=== PATIENT | male | born 1965 | race American Indian/Alaskan Native ===

== ENCOUNTER 2020-03-03 07:20 | Inpatient (IN) | payer OTHER, MEDICARE ==
[2020-03-03 09:14] LABS: Hematocrit 47.1 % (35.5-45.6); Hemoglobin 16.5 gm/dl (11.8-15.2); Mean Corpuscular HGB Conc 35 % (32-34); Mean Corpuscular Volume 100 fl (84-94); Platelet Count 215 K/mm3 (140-440); Red Blood Count 4.72 M/mm3 (3.65-5.03)
[2020-03-03 09:36] LABS: Alanine Aminotransferase 16 units/L (7-56); Albumin 3.2 g/dL (3.9-5); BUN/Creatinine Ratio 11; Blood Urea Nitrogen 10 mg/dL (9-20); Calcium 9.2 mg/dL (8.4-10.2); Hemolysis Index 55
[2020-03-03] MEDS ORDERED: SODIUM CHLORIDE 0.9% 1000 ML 1,000 ML IV ONE (10:48)
[2020-03-03] MEDS ORDERED: ONDANSETRON 4 MG/2 ML INJ IV ONE (10:49)
[2020-03-03] MEDS ORDERED: PANTOPRAZOLE 40 MG INJ IV ONE (10:49)
[2020-03-03] MEDS ORDERED: POTASSIUM CHLORIDE ER 20 MEQ TAB PO ONE (11:03)
[2020-03-03] MEDS ORDERED: MAGNESIUM SULFATE 2 GM/50 ML BAG IV ONE (11:10)
[2020-03-03] MEDS: POTASSIUM CHLORIDE 10 MEQ 10 MEQ/100 ML BAG IV SCH ×4 (11:11→19:54)
--- NOTE | 2020-03-03 11:16 | Emergency Department Report ---
ED General Adult HPI - General Chief complaint: Abdominal Pain Stated complaint: STOMACH PAIN/CANT URINATE Time Seen by Provider: 03/03/20 10:46 Source: patient Mode of arrival: Ambulatory Limitations: No Limitations - History of Present Illness Initial comments: This is a 54-year-old man with a history of "beer Potomania". He was admitted in 2018 with multiple electrolyte disturbance. He has a history of cachexia. He states that he has not been able to urinate for 3 to 4 days. The patient is very reticent to answer questions. While his triage note states that he is having abdominal pain, he just tells me that he "cannot pee". Indeed on exam he has obvious cystomegaly. He states that he had a normal bowel movement last night. He is not complaining of anxiety shaking or hallucinosis. He does have a history of alcohol abuse obviously. He is remarkably awake for a sodium of 116. Labs are available at the time of my encounter. Again, the patient appears largely unwilling to discuss his medical history. Obviously, he is in need of a Blair catheter. He states that he has had a catheter before. When asked if he has a history of prostate cancer, he states I have a specialist that is checking into that". -: Gradual, days(s) Location: abdomen (Suprapubic) Radiation: non-radiation Quality: aching Consistency: intermittent Improves with: none Worsens with: other (Inability to urinate) Associated Symptoms: denies other symptoms, weakness Treatments Prior to Arrival: none - Related Data Previous Rx's Medication Instructions Recorded Last Taken Type Albuterol Sulfate [Ventolin HFA] 2 puff IH Q4H PRN #1 hfa.aer.ad 11/21/17 Unknown Rx Folic Acid [Folvite] 1 mg PO DAILY #30 tablet 11/21/17 Unknown Rx Multivitamin Tab W-MINERAL 1 each PO QDAY #30 tablet 11/21/17 Unknown Rx [Multiple Vitamin/Mineral (Theragran M)] Nicotine [Habitrol] 14 mg TD DAILY #30 patch 11/21/17 Unknown Rx Potassium Chloride [K-Dur] 20 meq PO BID #60 tablet 11/21/17 Unknown Rx Thiamine [Vitamin B-1] 100 mg PO QDAY #30 tablet 11/21/17 Unknown Rx amLODIPine 5 mg PO DAILY #30 tablet 11/21/17 Unknown Rx Allergies Allergy/AdvReac Type Severity Reaction Status Date / Time lisinopril Allergy Swelling Verified 06/11/13 23:39 ED Review of Systems ROS: Stated complaint: STOMACH PAIN/CANT URINATE Other details as noted in HPI Constitutional: denies: chills, fever Eyes: denies: eye pain, vision change ENT: denies: ear pain, throat pain Respiratory: denies: cough, shortness of breath Cardiovascular: denies: chest pain, palpitations Endocrine: no symptoms reported Gastrointestinal: as per HPI. denies: nausea, diarrhea Genitourinary: as per HPI Musculoskeletal: denies: back pain, arthralgia Skin: denies: rash, lesions Neurological: denies: headache, weakness, paresthesias Psychiatric: denies: anxiety, depression Hematological/Lymphatic: denies: easy bleeding, easy bruising ED Past Medical Hx - Past Medical History Previous Medical History?: Yes Hx Hypertension: Yes Hx Congestive Heart Failure: No Hx Diabetes: No Hx Asthma: Yes Hx COPD: No Hx HIV: No Additional medical history: etoh abuse, etoh withdraw, Prostate problems - Surgical History Past Surgical History?: Yes Additional Surgical History: r) foot surgery - Social History Smoking Status: Current Every Day Smoker Substance Use Type: Alcohol - Medications Home Medications: Home Medications Medication Instructions Recorded Confirmed Last Taken Type Albuterol Sulfate [Ventolin HFA] 2 puff IH Q4H PRN #1 hfa.aer.ad 11/21/17 Unknown Rx Folic Acid [Folvite] 1 mg PO DAILY #30 tablet 11/21/17 Unknown Rx Multivitamin Tab W-MINERAL 1 each PO QDAY #30 tablet 11/21/17 Unknown Rx [Multiple Vitamin/Mineral (Theragran M)] Nicotine [Habitrol] 14 mg TD DAILY #30 patch 11/21/17 Unknown Rx Potassium Chloride [K-Dur] 20 meq PO BID #60 tablet 11/21/17 Unknown Rx Thiamine [Vitamin B-1] 100 mg PO QDAY #30 tablet 11/21/17 Unknown Rx amLODIPine 5 mg PO DAILY #30 tablet 11/21/17 Unknown Rx ED Physical Exam - General Limitations: Physical Limitation General appearance: alert, in no apparent distress, cachectic - Head Head exam: Present: atraumatic, normocephalic - Eye Eye exam: Present: normal appearance. Absent: scleral icterus - ENT ENT exam: Present: mucous membranes dry - Neck Neck exam: Present: normal inspection. Absent: tenderness, meningismus - Respiratory Respiratory exam: Present: normal lung sounds bilaterally. Absent: respiratory distress - Cardiovascular Cardiovascular Exam: Present: regular rate, normal rhythm. Absent: systolic murmur, diastolic murmur, rubs, gallop - GI/Abdominal GI/Abdominal exam: Present: soft, distended (Distended bladder), normal bowel sounds, organomegaly (Cystomegaly). Absent: tenderness, guarding, rebound, rigid - Rectal Rectal exam: Present: deferred - Extremities Exam Extremities exam: Present: normal inspection - Back Exam Back exam: Present: normal inspection - Neurological Exam Neurological exam: Present: alert, oriented X3, CN II-XII intact. Absent: motor sensory deficit - Psychiatric Psychiatric exam: Present: normal affect, normal mood - Skin Skin exam: Present: warm, dry, intact, normal color. Absent: rash ED Course Vital Signs 03/03/20 08:26 Temperature 97.4 F L Pulse Rate 114 H Respiratory 18 Rate Blood Pressure 151/84 O2 Sat by Pulse 100 Oximetry - Reevaluation(s) Reevaluation #1: Initial resuscitation consisted of a liter of normal saline bolus. I have ordered p.o. potassium as well as a K rider of 40. I have also ordered 2 g of magnesium empirically. I think we can be reasonably certain that this patient will be hypomagnesemic as well. Thus the patient requires admission for severe hyponatremia. This is remarkably without altered mental status. He has multiple other electrolyte abnormalities. I think the possibility of recurrent beer Potomania is reasonably likely. He is not currently withdrawing from alcohol. He may require a CIWA protocol at some point. However, I certainly would not give benzodiazepines as he does not currently require them and considering his current sodium at this point. 03/03/20 11:19 03/03/20 11:21 Patient will be admitted to the hospitalist service for further care and evaluation. ED Medical Decision Making - Lab Data Result diagrams: 03/03/20 08:32 03/03/20 08:32 Laboratory Results - last 72 hr 03/03/20 03/03/20 08:32 08:32 WBC 12.6 H RBC 4.72 Hgb 16.5 H Hct 47.1 H MCV 100 H MCH 35 H MCHC 35 H RDW 14.0 Plt Count 215 Seg Neutrophils % Director Of Music Sodium 116 L* Potassium 2.9 L* Chloride 69.3 L Carbon Dioxide 29 Anion Gap 21 BUN 10 Creatinine 0.9 Estimated GFR > 60 BUN/Creatinine Ratio 11 Glucose 130 H Calcium 9.2 Total Bilirubin 0.70 AST 35 ALT 16 Alkaline Phosphatase 161 H Total Protein 7.8 Albumin 3.2 L Albumin/Globulin Ratio 0.7 Critical care attestation.: If time is entered above; I have spent that time in minutes in the direct care of this critically ill patient, excluding procedure time. ED Disposition Clinical Impression: Hyponatremia, Hypokalemia, Bladder outlet obstruction Disposition: OP ADMIT IP TO THIS HOSP Is pt being admited?: Yes Does the pt Need Aspirin: No Condition: Stable Time of Disposition: 11:22
[2020-03-03 11:18] LABS: Band Neutrophils # (Manual) 0.1 K/mm3; Basophils % (Manual) 0 % (0.0-1.8); Eosinophils % (Manual) 0 % (0.0-4.3); Total Cells Counted 100
[2020-03-03 11:20] LABS: Target Cells Few
[2020-03-03 11:21] LABS: Platelet Estimate Consistent w Auto
[2020-03-03 12:08] LABS: INR 0.93 (0.87-1.13)
[2020-03-03 12:09] LABS: Partial Thromboplastin Time 29.4 Sec. (24.2-36.6)
[2020-03-03 12:22] LABS: Creatine Kinase MB 1.8 ng/mL (0.0-4.0)
--- NOTE | 2020-03-03 12:30 | XRay Report ---
CHEST 1 VIEW 03/03/2020 11:00 AM INDICATION / CLINICAL INFORMATION: hypertension. COMPARISON: Chest one view from 11/17/2017. FINDINGS: SUPPORT DEVICES: None. HEART / MEDIASTINUM: No significant abnormality. LUNGS / PLEURA: No significant pulmonary or pleural abnormality. No pneumothorax. ADDITIONAL FINDINGS: No significant additional findings. IMPRESSION: 1. No acute abnormality of the chest. Signer Name: Ad Page MD Signed: 03/03/2020 12:25 PM Workstation Name: [id number]
[2020-03-03] MEDS ORDERED: POTASSIUM CHLORIDE 10 MEQ 10 MEQ/100 ML BAG IV ONE (12:34)
--- NOTE | 2020-03-03 12:36 | History and Physical Report ---
History of Present Illness Date of examination: 03/03/20 Date of admission: 03/03/20 11:32 Chief complaint: Unable to urinate History of present illness: This is a 54-year-old male with a history of alcohol abuse, asthma presented to the hospital with complaints of unable to urinate for 3 to 4 days. Patient states that he had similar episodes in the past and that was resolved after placing a Blair. Currently he does have urology appointment outpatient on last week of March for possible cystoscopy. Patient does endorse heavy alcohol use his last alcohol intake was just before coming to the hospital. Patient noted to have distended abdomen in the ER and a Blair catheter was placed by ER physician which drained about 1 L of urine immediately. Patient feels much relieved now after placing a Blair. His serum chemistry also noted potassium of 2.9 and sodium of 112. His potassium was repleted in the ER, given 1 L of normal saline bolus and admission was called for severe hyponatremia and urinary retention. - Past Medical History Hx Hypertension: Yes Hx Congestive Heart Failure: No Hx Diabetes: No Hx Asthma: Yes Hx COPD: No Hx HIV: No Additional medical history: etoh abuse, etoh withdraw -Family history: denies any chronic medical disease - Surgical History Additional Surgical History: r) foot surgery - Social History Smoking Status: Current Every Day Smoker Substance Use Type: Alcohol Review of System: Constitutional: no fever, no chills, no weight loss Ears, eyes, nose, mouth and throat: no nasal congestion, no nasal discharge, no sinus pressure, no vision change, no red eye. Neck: No neck pain or rigidity. Cardiovascular: No chest pain, no orthopnea, no palpitations, no leg swelling Respiratory: No shortness of breath, no cough, no congestion, no wheezing Gastrointestinal: no abdominal pain, no nausea, no vomiting Genitourinary : no dysuria, no hematuria Musculoskeletal: no joint swelling or muscle ache Integumentary: no rash, no pruritis Neurological: no parathesias, no numbness, no tingling Endocrine: no cold or heat intolerance, no polyuria or polydipsia Hematologic/Lymphatic: no easy bruising, no easy bleeding, no gland swelling Allergic/Immunologic: no urticaria, no angioedema. Medications and Allergies Allergies Allergy/AdvReac Type Severity Reaction Status Date / Time lisinopril Allergy Swelling Verified 06/11/13 23:39 Home Medications Medication Instructions Recorded Confirmed Last Taken Type Albuterol Sulfate [Ventolin HFA] 2 puff IH Q4H PRN #1 hfa.aer.ad 11/21/17 03/03/20 Unknown Rx Folic Acid [Folvite] 1 mg PO DAILY #30 tablet 11/21/17 03/03/20 Unknown Rx Multivitamin Tab W-MINERAL 1 each PO QDAY #30 tablet 11/21/17 03/03/20 Unknown Rx [Multiple Vitamin/Mineral (Theragran M)] Nicotine [Habitrol] 14 mg TD DAILY #30 patch 11/21/17 03/03/20 Unknown Rx Potassium Chloride [K-Dur] 20 meq PO BID #60 tablet 11/21/17 03/03/20 Unknown Rx Thiamine [Vitamin B-1] 100 mg PO QDAY #30 tablet 11/21/17 03/03/20 Unknown Rx amLODIPine 5 mg PO DAILY #30 tablet 11/21/17 03/03/20 Unknown Rx Ibuprofen [Motrin] 800 mg PO Q8HR PRN 03/03/20 03/03/20 Unknown History Tamsulosin [Flomax] 0.4 mg PO QDAY 03/03/20 03/03/20 Unknown History Active Meds: Active Medications Albuterol (Proair) 2 puff IH Q4HRT PRN PRN Reason: Shortness Of Breath Amlodipine Besylate (Amlodipine) 5 mg PO DAILY NOEMI Folic Acid (Folvite) 1 mg PO DAILY NOEMI Potassium Chloride (Kcl 10meq/100ml) 10 meq in 100 mls @ 100 mls/hr IV Q1H NOEMI Stop: 03/03/20 14:59 Last Admin: 03/03/20 12:28 Dose: 100 mls/hr Documented by: Sodium Chloride (Nacl 0.9% 1000 Ml) 1,000 mls @ 100 mls/hr IV DIRECT NOEMI Multivitamins/Minerals (Theragran-M Tab) 1 each PO QDAY NOEMI Nicotine (Habitrol) 14 mg TD DAILY NOEMI Potassium Chloride (K-Dur) 20 meq PO BID NOEMI Tamsulosin HCl (Flomax) 0.4 mg PO QDAY NOEMI Thiamine HCl (Vitamin B-1) 100 mg PO QDAY NOEMI Exam - Physical Exam Narrative exam: GENERAL: well-developed and malnourished -[place] male lying on bed appeared to be in no discomfort. HEENT: Normocephalic. Atraumatic. No conjunctival congestion or icterus. Patient has moist mucous membranes. NECK: Supple. Trachea midline. CHEST/LUNGS: Clear to auscultated bilaterally, breathing nonlabored. No wheezes crackles or rhonchi. HEART/CARDIOVASCULAR: Regular in rate and rhythm. S1 and S2 positive. ABDOMEN: Abdomen is soft, nontender. Patient has normal bowel sounds. SKIN: There is no rash. Warm and dry. NEURO: No focal motor deficit. Follows command. MUSCULOSKELETAL: No joint effusion or tenderness. EXTRIMITY: No edema, no cyanosis or clubbing. PSYCH: Cooperative. - Constitutional Vitals: Temp Pulse Resp BP Pulse Ox 97.4 F L 114 H 18 151/84 100 03/03/20 08:26 03/03/20 08:26 03/03/20 08:26 03/03/20 08:26 03/03/20 08:26 Results - Labs CBC & Chem 7: 03/04/20 07:41 03/04/20 07:41 Labs: Abnormal lab results 03/03/20 03/03/20 03/03/20 Range/Units 08:32 08:32 11:04 WBC 12.6 H (4.5-11.0) K/mm3 Hgb 16.5 H (11.8-15.2) gm/dl Hct 47.1 H (35.5-45.6) % MCV 100 H (84-94) fl MCH 35 H (28-32) pg MCHC 35 H (32-34) % Seg Neuts % (Manual) 95.0 H (40.0-70.0) % Lymphocytes % (Manual) 2.0 L (13.4-35.0) % Seg Neutrophils # Man 12.0 H (1.8-7.7) K/mm3 Lymphocytes # (Manual) 0.3 L (1.2-5.4) K/mm3 Sodium 116 L* (137-145) mmol/L Potassium 2.9 L* (3.6-5.0) mmol/L Chloride 69.3 L (98-107) mmol/L Glucose 130 H (75-100) mg/dL Magnesium 2.60 H (1.7-2.3) mg/dL Alkaline Phosphatase 161 H (35-129) units/L Albumin 3.2 L (3.9-5) g/dL Assessment and Plan --Urinary retention likely due to bladder outlet obstruction -We will obtain CT abdomen pelvis -Blair catheter placed in the ER which drained over 1000 mL of urine -Continue to monitor ins and O's -Urology consult following CT abdomen pelvis result --Hyponatremia; likely beer proteinemia continue saline, monitor BMP --Hypokalemia; continue repletion --UTI, mild we will place on IV antibiotic, will get urine culture --ETOH withdrawal/metabolic encephalopathy; continue librium and ciwa protocol --Severe malnutrition; counseled about eating real food, patient mostly drinks beer and does not actually consume any food. Dietary consult --polysubstance abuse; counseled, but patient declined to change his behavior --DVT prophylaxis, placed on Lovenox
--- NOTE | 2020-03-03 12:36 | Progress Note ---
Assessment and Plan Hyponatremia, Hypokalemia, Bladder outlet obstruction Subjective Date of service: 03/03/20 Objective - Constitutional Vitals: Vital Signs - 12hr 03/03/20 08:26 Temperature 97.4 F L Pulse Rate 114 H Respiratory 18 Rate Blood Pressure 151/84 O2 Sat by Pulse 100 Oximetry - Labs CBC & Chem 7: 03/03/20 08:32 03/03/20 08:32 Labs: Abnormal lab results 03/03/20 03/03/20 03/03/20 Range/Units 08:32 08:32 11:04 WBC 12.6 H (4.5-11.0) K/mm3 Hgb 16.5 H (11.8-15.2) gm/dl Hct 47.1 H (35.5-45.6) % MCV 100 H (84-94) fl MCH 35 H (28-32) pg MCHC 35 H (32-34) % Seg Neuts % (Manual) 95.0 H (40.0-70.0) % Lymphocytes % (Manual) 2.0 L (13.4-35.0) % Seg Neutrophils # Man 12.0 H (1.8-7.7) K/mm3 Lymphocytes # (Manual) 0.3 L (1.2-5.4) K/mm3 Sodium 116 L* (137-145) mmol/L Potassium 2.9 L* (3.6-5.0) mmol/L Chloride 69.3 L (98-107) mmol/L Glucose 130 H (75-100) mg/dL Magnesium 2.60 H (1.7-2.3) mg/dL Alkaline Phosphatase 161 H (35-129) units/L Albumin 3.2 L (3.9-5) g/dL
[2020-03-03] MEDS ORDERED: chlordiazePOXIDE 25 MG CAP PO PRN (12:38)
[2020-03-03] MEDS ORDERED: LORazepam 2 MG/ML VIAL IV PRN (12:38)
[2020-03-03 13:14] LABS: Bacteria,Urine 4+ /HPF (Negative); Bilirubin,Urine NEG (Negative); Blood,Urine MOD (Negative); Color,Urine Yellow (Yellow); Hyaline Casts,Urine 3 /LPF; Mucus,Urine FEW /HPF; Urobilinogen,Urine < 2.0 mg/dL (<2.0)
[2020-03-03 13:16] LABS: Protein,Urine >500 mg/dL (Negative)
--- NOTE | 2020-03-03 15:23 | Cat Scan Report ---
CT ABDOMEN AND PELVIS WITHOUT CONTRAST INDICATION: Flank pain and urinary retention. TECHNIQUE: Axial CT images were obtained through the abdomen and pelvis without IV contrast. All CT scans at [facility] location are performed using CT dose reduction for ALARA by means of automated exposure control. COMPARISON: None available. FINDINGS: LOWER CHEST: Mild linear bibasilar atelectasis/scarring. LIVER: No significant abnormality. GALLBLADDER: No significant abnormality. BILE DUCTS: No significant abnormality. PANCREAS: No significant abnormality. SPLEEN: No significant abnormality. ADRENALS: No significant abnormality. RIGHT KIDNEY and URETER: Moderate right hydroureteronephrosis nephrosis without visualized urinary tr act calculi. LEFT KIDNEY and URETER: No significant abnormality. STOMACH and SMALL BOWEL: No significant abnormality. COLON: Moderate sigmoid diverticulosis without CT evidence for diverticulitis. APPENDIX: No significant abnormality. PERITONEUM: No free fluid. No free air. No fluid collection. LYMPH NODES: No significant adenopathy. AORTA and ARTERIES: 7 cm heterogeneous lesion left upper quadrant near splenic hilum likely represent s an acute splenic artery aneurysm/pseudoaneurysm and does not contain any calcifications. Extensive vascular calcifications within nonaneurysmal abdominal aorta IVC and VEINS: No significant abnormality. URINARY BLADDER: Marked diffuse bladder wall thickening. Bladder partially collapsed and contains Fol ey catheter. REPRODUCTIVE ORGANS: Enlarged prostate measuring 4.9 cm ADDITIONAL FINDINGS: None. SKELETAL SYSTEM: Chronic right L5 spondylolysis IMPRESSION: 1. 7 cm indeterminate heterogeneous lesion within left upper quadrant near splenic hilum. Favor acute splenic artery aneurysm/pseudoaneurysm. Recommend CTA abdomen with contrast for further evaluation 2. Moderate right and mild left hydroureteronephrosis secondary to marked 3. No urinary tract calculi. Diffuse bladder wall thickening 4. 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 Signer Name: Cameron Daugherty MD Signed: 03/03/2020 3:19 PM Workstation Name: [id number]
[2020-03-03] MEDS ORDERED: ALBUTEROL 8.5 GM MDI INHALATION IH PRN (16:00)
--- NOTE | 2020-03-03 17:26 | Cat Scan Report ---
CT ABDOMEN WITH CONTRAST INDICATION / CLINICAL INFORMATION: MAIN. TECHNIQUE: Axial CT images were obtained through the abdomen after IV contrast. All CT scans at this location ar e performed using CT dose reduction for ALARA by means of automated exposure control. COMPARISON: None available. FINDINGS: LOWER CHEST: No significant abnormality. LIVER: No significant abnormality. GALLBLADDER: No significant abnormality. BILE DUCTS: No significant abnormality. 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 SPLEEN: No significant abnormality. ADRENALS: No significant abnormality. RIGHT KIDNEY and URETER: Moderate right hydroureteronephrosis LEFT KIDNEY and URETER: Mild left hydroureteronephrosis STOMACH and SMALL BOWEL: No significant abnormality. COLON: No significant abnormality. APPENDIX: No significant abnormality. PERITONEUM: No free fluid. No free air. No fluid collection. LYMPH NODES: No significant adenopathy. AORTA and ARTERIES: No significant abnormality. IVC and VEINS: No significant abnormality. ADDITIONAL FINDINGS: Enlarged enhancing pancreas with invasion of posterior bladder wall seen best on axial image 155 with marked diffuse bladder wall thickening which is the etiology of the bilateral h ydronephrosis fully catheter is seen within the collapsed urinary bladder SKELETAL SYSTEM: Blastic 1.6 cm skeletal metastasis is seen within the anterior aspect of the L2 vert ebral body seen best on sagittal image 70 IMPRESSION: 1. 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 This would be amenable to endoscopic ultrasound-guided biopsy 2. Moderate bilateral hydroureter ureter hydronephrosis secondary to prostate cancer with bladder inv asion 4. Blastic L2 skeletal metastasis Signer Name: Cameron Daugherty MD Signed: 03/03/2020 5:22 PM Workstation Name: [id number]
[2020-03-03] MEDS ORDERED: hydrALAZINE 20 MG/1 ML INJ IV PRN (18:06)
[2020-03-03] MEDS: SODIUM CHLORIDE 0.9% 1000 ML 1,000 ML IV SCH (18:38)
[2020-03-03] MEDS: IBUPROFEN 600 MG TAB PO PRN (18:45)
[2020-03-03] MEDS: POTASSIUM CHLORIDE ER 20 MEQ TAB PO SCH (21:46)
[2020-03-04] MEDS: SODIUM CHLORIDE 0.9% 1000 ML 1,000 ML IV SCH ×2 (05:28→15:45)
[2020-03-04 08:11] LABS: Basophils % (Auto) 0.1 % (0.0-1.8); Eosinophils % (Auto) 0.1 % (0.0-4.3); Hematocrit 42.7 % (35.5-45.6); Hemoglobin 14.8 gm/dl (11.8-15.2); Lymphocytes # (Auto) 0.5 K/mm3 (1.2-5.4); Lymphocytes % (Auto) 3.9 % (13.4-35.0); Mean Corpuscular HGB Conc 35 % (32-34); Mean Corpuscular Volume 100 fl (84-94); Monocytes # (Auto) 0.8 K/mm3 (0.0-0.8); Monocytes % (Auto) 6.2 % (0.0-7.3); Platelet Count 167 K/mm3 (140-440); Red Blood Count 4.29 M/mm3 (3.65-5.03); Red Cell Distribution Width 13.8 % (13.2-15.2)
[2020-03-04 08:27] LABS: BUN/Creatinine Ratio 11; Blood Urea Nitrogen 9 mg/dL (9-20); Calcium 8.3 mg/dL (8.4-10.2); Hemolysis Index 12
[2020-03-04] MEDS ORDERED: amLODIPine 5 MG TAB PO SCH ×2 (10:00→11:43)
[2020-03-04] MEDS: TAMSULOSIN 0.4 MG CAP PO SCH (10:58)
[2020-03-04] MEDS: FOLIC ACID 1 MG TAB PO SCH (10:58)
[2020-03-04] MEDS: NICOTINE 14 MG/24 HR PATCH TD SCH (10:58)
[2020-03-04] MEDS: THIAMINE 100 MG TAB PO SCH (10:58)
[2020-03-04] MEDS: IBUPROFEN 600 MG TAB PO PRN (10:58)
[2020-03-04] MEDS: POTASSIUM CHLORIDE ER 20 MEQ TAB PO SCH ×2 (10:58→21:58)
[2020-03-04] MEDS: MULTIVITAMINS,THER W-MINERALS TAB PO SCH (10:58)
[2020-03-04] MEDS ORDERED: ACETAMINOPHEN 325 MG TAB PO PRN (11:44)
[2020-03-04] MEDS ORDERED: cefTRIAXone/NS 1 GM/50 ML 1 GM/50 ML BAG IV SCH (13:00)
[2020-03-04] MEDS: METOPROLOL TARTRATE 50 MG TAB PO SCH ×2 (13:16→21:56)
--- NOTE | 2020-03-04 15:31 | Progress Note ---
Assessment and Plan --Urinary retention likely due to bladder outlet obstruction -CT abdomen pelvis showed possibly stage IV prostate cancer with bony and blad alton metastasis -Blair catheter placed in the ER which drained over 1000 mL of urine -Continue to monitor ins and O's -We will order for urology consult --pancreatic tail tumor, will consult GI for further recommendation. monitor LFTs --Hyponatremia; continue saline, monitor BMP --Hypokalemia; continue repletion --ETOH withdrawal/metabolic encephalopathy; continue librium and ciwa protocol --UTI, mild we will place on IV antibiotic, will get urine culture --Severe malnutrition; counseled about eating real food, patient mostly drinks beer and does not actually consume any food. Dietary consult --polysubstance abuse; counseled, --Hypertension, continue to monitor BP and adjust medications to keep SBP less than 160 --DVT prophylaxis, placed on Lovenox 03/04: Potassium level normal, sodium [address] abdomen pelvis results. Will consult urology for further evaluation and management for possible stage IV prostate cancer. will also consult GI for pancreatic tail tumor Subjective Date of service: 03/04/20 Interval history: Patient seen and examined. Medical records and medication list reviewed. No acute event overnight noted by the RN. Patient denies any chest pain or difficulty breathing. Patient refusing regular diet, he requested to keep him on clear liquid diet Updated him with the CT scan results Discussed plan of care at bedside with patient. Objective - Exam Narrative Exam: GENERAL: well-developed and malnourished -[place] male lying on bed appeared to be in no discomfort. HEENT: Normocephalic. Atraumatic. No conjunctival congestion or icterus. Patient has moist mucous membranes. NECK: Supple. Trachea midline. CHEST/LUNGS: Clear to auscultated bilaterally, breathing nonlabored. No wheezes crackles or rhonchi. HEART/CARDIOVASCULAR: Regular in rate and rhythm. S1 and S2 positive. ABDOMEN: Abdomen is soft, nontender. Patient has normal bowel sounds. SKIN: There is no rash. Warm and dry. NEURO: No focal motor deficit. Follows command. MUSCULOSKELETAL: No joint effusion or tenderness. EXTRIMITY: No edema, no cyanosis or clubbing. PSYCH: Cooperative. - Constitutional Vitals: Vital Signs - 12hr 03/04/20 03/04/20 03/04/20 05:05 05:51 07:02 Temperature 98.5 F 99.2 F Pulse Rate 120 H 110 H Pulse Rate [ From Monitor] Respiratory 18 18 Rate Blood Pressure 168/86 168/86 165/85 O2 Sat by Pulse 96 98 Oximetry 03/04/20 03/04/20 08:00 11:11 Temperature 102.2 F H Pulse Rate 119 H Pulse Rate [ 120 H From Monitor] Respiratory 20 Rate Blood Pressure 172/88 O2 Sat by Pulse 98 Oximetry - Labs CBC & Chem 7: 03/04/20 07:41 03/04/20 07:41 Labs: Abnormal lab results 03/04/20 03/04/20 Range/Units 07:41 07:41 WBC 12.5 H (4.5-11.0) K/mm3 MCV 100 H (84-94) fl MCH 35 H (28-32) pg MCHC 35 H (32-34) % Lymph % (Auto) 3.9 L (13.4-35.0) % Lymph # (Auto) 0.5 L (1.2-5.4) K/mm3 Seg Neutrophils % 89.7 H (40.0-70.0) % Seg Neutrophils # 11.3 H (1.8-7.7) K/mm3 Sodium 120 L (137-145) mmol/L Chloride 82.0 L (98-107) mmol/L Calcium 8.3 L (8.4-10.2) mg/dL
--- NOTE | 2020-03-05 10:15 | Consultation ---
History of Present Illness - Reason for Consult Consult date: 03/05/20 - History of Present Illness This is a 54-year-old man with a history of "beer Potomania". He was admitted in 2018 with multiple electrolyte disturbance. He has a history of cachexia. He states that he has not been able to urinate for 3 to 4 days. While his triage note states that he is having abdominal pain, he just tells ER doc that he "cannot pee". He states that he had a normal bowel movement last night. He is not complaining of anxiety shaking or hallucinosis. He does have a history of alcohol abuse obviously. He is remarkably awake for a sodium of 116. Labs are available at the time of my encounter. Mckeon catheter placed in ER. He states that he has had a catheter before. When asked if he has a history of prostate cancer, he states I have a specialist that is checking into that". CTAP-- + hydro, bladder collapsed with mckeon present, pancreatic mass mckeon draining well--clear urine circ A/P retention prostate cancer home with mckeon when stable recommend flomax 1qd Medications and Allergies Allergies Allergy/AdvReac Type Severity Reaction Status Date / Time lisinopril Allergy Swelling Verified 06/11/13 23:39 Home Medications Medication Instructions Recorded Confirmed Last Taken Type Albuterol Sulfate [Ventolin HFA] 2 puff IH Q4H PRN #1 hfa.aer.ad 11/21/17 03/03/20 Unknown Rx Folic Acid [Folvite] 1 mg PO DAILY #30 tablet 11/21/17 03/03/20 Unknown Rx Multivitamin Tab W-MINERAL 1 each PO QDAY #30 tablet 11/21/17 03/03/20 Unknown Rx [Multiple Vitamin/Mineral (Theragran M)] Nicotine [Habitrol] 14 mg TD DAILY #30 patch 11/21/17 03/03/20 Unknown Rx Potassium Chloride [K-Dur] 20 meq PO BID #60 tablet 11/21/17 03/03/20 Unknown Rx Thiamine [Vitamin B-1] 100 mg PO QDAY #30 tablet 11/21/17 03/03/20 Unknown Rx amLODIPine 5 mg PO DAILY #30 tablet 11/21/17 03/03/20 Unknown Rx Ibuprofen [Motrin 800 MG tab] 800 mg PO Q8HR PRN 03/03/20 03/03/20 Unknown History Tamsulosin [Flomax] 0.4 mg PO QDAY 03/03/20 03/03/20 Unknown History Active Meds: Active Medications Acetaminophen (Tylenol) 650 mg PO Q4H PRN PRN Reason: Pain MILD(1-3)/Fever >100.5/MARK Albuterol (Proair) 2 puff IH Q4HRT PRN PRN Reason: Shortness Of Breath Amlodipine Besylate (Amlodipine) 10 mg PO DAILY [facility] Chlordiazepoxide HCl (Librium) 50 mg PO Q1H PRN PRN Reason: CIWA-Ar 8- Folic Acid (Folvite) 1 mg PO DAILY [facility] Last Admin: 03/04/20 10:58 Dose: 1 mg Documented by: Hydralazine HCl (Apresoline) 10 mg IV Q4HR PRN PRN Reason: B/p greater then 160 systolic Last Admin: 03/04/20 05:51 Dose: 10 mg Documented by: Sodium Chloride (Nacl 0.9% 1000 Ml) 1,000 mls @ 100 mls/hr IV DIRECT [facility] Last Admin: 03/04/20 15:45 Dose: 100 mls/hr Documented by: Ceftriaxone Sodium (Rocephin/Ns 1 Gm/50 Ml) 1 gm in 50 mls @ 100 mls/hr IV Q24H [facility]; Protocol Last Admin: 03/04/20 13:16 Dose: 100 mls/hr Documented by: Ibuprofen (Ibuprofen) 600 mg PO Q6H PRN PRN Reason: Pain, Mild (1-3) Last Admin: 03/04/20 10:58 Dose: 600 mg Documented by: Lorazepam (Ativan) 2 mg IV Q1H PRN PRN Reason: CIWA-Ar 8-15 Last Admin: 03/03/20 19:30 Dose: 2 mg Documented by: Metoprolol Tartrate (Metoprolol) 50 mg PO BID [facility] Last Admin: 03/04/20 21:56 Dose: 50 mg Documented by: Multivitamins/Minerals (Theragran-M Tab) 1 each PO QDAY [facility] Last Admin: 03/04/20 10:58 Dose: 1 each Documented by: Nicotine (Habitrol) 14 mg TD DAILY [facility] Last Admin: 03/04/20 10:58 Dose: 14 mg Documented by: Potassium Chloride (K-Dur) 20 meq PO BID [facility] Last Admin: 03/04/20 21:58 Dose: 20 meq Documented by: Tamsulosin HCl (Flomax) 0.4 mg PO QDAY [facility] Last Admin: 03/04/20 10:58 Dose: 0.4 mg Documented by: Thiamine HCl (Vitamin B-1) 100 mg PO QDAY [facility] Last Admin: 03/04/20 10:58 Dose: 100 mg Documented by: Exam - Constitutional Vitals: Temp Pulse Resp BP Pulse Ox 98.0 F 109 H 18 182/87 97 03/05/20 07:42 03/05/20 07:42 03/05/20 07:42 03/05/20 07:42 03/05/20 07:42 Results - Labs CBC & Chem 7: 03/04/20 07:41 03/04/20 07:41
[2020-03-05 11:46] VITALS: BP 183/94
[2020-03-05] MEDS: TAMSULOSIN 0.4 MG CAP PO SCH (12:33)
[2020-03-05] MEDS: METOPROLOL TARTRATE 50 MG TAB PO SCH (12:33)
[2020-03-05] MEDS: FOLIC ACID 1 MG TAB PO SCH (12:34)
[2020-03-05] MEDS: NICOTINE 14 MG/24 HR PATCH TD SCH (12:34)
[2020-03-05] MEDS: THIAMINE 100 MG TAB PO SCH (12:34)
[2020-03-05] MEDS: POTASSIUM CHLORIDE ER 20 MEQ TAB PO SCH (12:34)
[2020-03-05] MEDS: MULTIVITAMINS,THER W-MINERALS TAB PO SCH (12:34)
--- NOTE | 2020-03-05 14:52 | Discharge Summary ---
Providers - Providers Date of Admission: 03/03/20 11:32 Date of discharge: 03/05/20 Attending physician: JANETT YIP 03/03/20 12:43 Consult to Dietitian/Nutrition [CONS] Routine Physician Instructions: Reason For Exam: Reason for Consult: Malnutrition 03/05/20 10:05 Consult to Physician [CONS] Routine Comment: Consulting Provider: MARINE MENJIVAR Physician Instructions: Reason For Exam: prostate cancer Consult to Physician [CONS] Routine Comment: Consulting Provider: SANTOSH DE LA O Physician Instructions: Reason For Exam: pancreatic tail tumor Primary care physician: TOURS CAPTAIN Hospitalization Condition: Stable Hospital course: Discharge Diagnosis: --Urinary retention likely due to bladder outlet obstruction -CT abdomen pelvis showed possibly stage IV prostate cancer with bony and bladder metastasis -Blair catheter placed in the ER which drained over 1000 mL of urine -urology consult placed and recommended outpt f/u --Pancreatic tail tumor, consulted GI for further recommendation but patient left AMA before he could be seen by GI --Hyponatremia; s/p iv NS saline --Hypokalemia; repleted --ETOH withdrawal/metabolic encephalopathy; placed on librium and ciwa protocol --UTI, mild placed on IV antibiotic, ordered urine culture --Severe malnutrition; counseled about eating real food, patient mostly drinks beer and does not actually consume any food. Dietary consult placed --polysubstance abuse; counseled, but he was not interested to limit his alcohol or other drug abuse --Hypertension, monitored BP and adjusted medications to keep SBP less than 160 --DVT prophylaxis, placed on Lovenox Disposition: DC-07 LEFT AGAINST MED ADVICE Core Measure Documentation - Palliative Care Palliative Care/ Comfort Measures: Not Applicable - Core Measures Any of the following diagnoses?: none Exam - Physical Exam Narrative exam: GENERAL: well-developed and malnourished -Martiniquais male lying on bed appeared to be in no discomfort. HEENT: Normocephalic. Atraumatic. No conjunctival congestion or icterus. Patient has moist mucous membranes. NECK: Supple. Trachea midline. CHEST/LUNGS: Clear to auscultated bilaterally, breathing nonlabored. No wheezes crackles or rhonchi. HEART/CARDIOVASCULAR: Regular in rate and rhythm. S1 and S2 positive. ABDOMEN: Abdomen is soft, nontender. Patient has normal bowel sounds. SKIN: There is no rash. Warm and dry. NEURO: No focal motor deficit. Follows command. MUSCULOSKELETAL: No joint effusion or tenderness. EXTRIMITY: No edema, no cyanosis or clubbing. PSYCH: Cooperative. - Constitutional Vitals: Temp Pulse Resp BP Pulse Ox 98.5 F 115 H 18 183/94 97 03/05/20 11:13 03/05/20 12:33 03/05/20 11:13 03/05/20 12:33 03/05/20 11:13 Plan Follow up with: PRIMARY CARE, [Primary Care Provider] - 3-5 Days
== END 2020-03-05 12:54 | disposition left against medical advice (07) | DRG 698 ==
LOC: ED 07:20 → 3A 11:32 → OBSVTOIN 11:32 → 3B-SURG 11:44
PROVIDERS: ADMIT Internal Medicine; ATTEND Internal Medicine
DX: N32.0 Bladder-neck obstruction (principal); E43 Unspecified severe protein-calorie malnutrition; G93.41 Metabolic encephalopathy; E87.1 Hypo-osmolality and hyponatremia; F10.239 Alcohol dependence with withdrawal, unspecified; C79.11 Secondary malignant neoplasm of bladder; N39.0 Urinary tract infection, site not specified; Z68.1 Body mass index [BMI] 19.9 or less, adult; C61 Malignant neoplasm of prostate; R33.8 Other retention of urine; E87.6 Hypokalemia; F19.10 Other psychoactive substance abuse, uncomplicated; I10 Essential (primary) hypertension; J45.909 Unspecified asthma, uncomplicated; F17.200 Nicotine dependence, unspecified, uncomplicated; Z79.899 Other long term (current) drug therapy; Z88.8 Allergy status to other drugs, medicaments and biological substances
CPT/HCPCS: 36415; 71045; 74160; 74176; 80048; 80053; 81001; 82140; 82550; 82553; 83735; 84100; 84154; 85007; 85025; 85610; 85730; 87076; 87086; 87186; 90471; 93005; 96374; 96375; G0378; C9113; J0360; J0696; J2060; J2405; J3475; J3480; J7030; Q9967